=== PATIENT | female | born 2000 | race Caucasian/White ===

== ENCOUNTER 2022-07-31 15:11 | Emergency (ER) | payer MEDICAID, SELFPAY ==
[2022-07-31 16:16] VITALS: BP 113/68; PULSE 94; RESP 18; TEMP 36.8; O2SAT 98; BMI 32.1
--- NOTE | 2022-07-31 16:16 | ED.SKABFB ---
HPI - Skin/Abscess/Foreign Bdy General Chief complaint: Skin/Abscess/Foreign Body <Katrin Flores CNP - Last Filed: 07/31/22 16:20> Stated complaint: abcess? <Katrin Flores CNP - Last Filed: 07/31/22 16:20> Time Seen by Provider: 07/31/22 16:33 <Katrin Flores CNP - Last Filed: 07/31/22 16:20> History of Present Illness HPI narrative: patient complains of painful lump in the gluteal area that is developed over the past 2 weeks denies any fever denies any other rash or painful areas <PANDA Romero - Last Filed: 07/31/22 17:40> Related Data Home medications: Previous Rx's Medication Instructions Recorded doxycycline hyclate 100 mg capsule 100 mg PO BID 7 days #14 caps 07/31/22 ibuprofen 600 mg tablet 600 mg PO Q6H PRN pain #20 tabs 07/31/22 <Katrin Flores CNP - Last Filed: 07/31/22 16:20> Allergies/Adverse reactions: Allergies Allergy/AdvReac Type Severity Reaction Status Date / Time No Known Allergies Allergy Verified 07/31/22 16:20 <Katrin Flores CNP - Last Filed: 07/31/22 16:20> [facility] Past Medical History Source: nursing notes reviewed <PANDA Romero - Last Filed: 07/31/22 17:40> Social History Social History: Social History Advance Directives: No Advance Directives Information Provided: Yes <Katrin Flores CNP - Last Filed: 07/31/22 16:20> Physical Exam Vital Signs: Vital Signs: Last Vital Signs Temp 98.2 F 07/31/22 16:16 Pulse 94 07/31/22 16:16 Resp 18 07/31/22 16:16 BP 113/68 07/31/22 16:16 Pulse Ox 98 07/31/22 16:16 O2 Del Method 07/31/22 16:16 BMI result Body Mass Index 32.1 <Katrin Flores CNP - Last Filed: 07/31/22 16:20> Vital Signs: Last Vital Signs Temp 98.2 F 07/31/22 16:16 Pulse 94 01/06/23 16:16 Resp 18 07/31/22 16:16 BP 113/68 07/31/22 16:16 Pulse Ox 98 07/31/22 16:16 O2 Del Method 07/31/22 16:16 BMI result Body Mass Index 32.1 <PANDA Romero - Last Filed: 07/31/22 17:40> general appearance is no distress Head is normocephalic atraumatic Neck is supple Respiratory no distress Skin exam in the pilonidal area there is an obvious abscess with redness swelling and fluctuance but no fluid discharge in no surrounding erythema, no other rashes noted Extremities full range of motion x4 <PANDA Romero - Last Filed: 07/31/22 17:40> Course Course Course Narrative: This is an RME: Additional HPI, ROS, PE not included below will be deferred to primary provider. Patient is a 22 year old female presents to the emergency department for evaluation of a cyst to the left buttock. Complaining severe pain unrelieved by Aleve, also complaining redness surrounding the area. Denies fevers or chills. Denies any history of MRSA, or prior abscesses. Plan: Patient will need to be brought back to room for further evaluation, may require incision and drainage. <Katrin Flores CNP - Last Filed: 07/31/22 16:20> This is an RME: Additional HPI, ROS, PE not included below will be deferred to primary provider. Patient is a 22 year old female presents to the emergency department for evaluation of a cyst to the left buttock. Complaining severe pain unrelieved by Aleve, also complaining redness surrounding the area. Denies fevers or chills. Denies any history of MRSA, or prior abscesses. Plan: Patient will need to be brought back to room for further evaluation, may require incision and drainage. procedure note Pilonidal abscess is cleansed with Betadine Anesthesia is 8 cc of 1% lidocaine A small vertical incision was made, it was probed with forceps loculations broken up and copious pus was discharge Packing was placed Bandage applied Patient was discharged home with antibiotic <PANDA Romero - Last Filed: 07/31/22 17:40> Medications Administered Discontinued Medications Generic Name Dose Route Start Last Admin Trade Name Freq PRN Reason Stop Dose Admin Lidocaine HCl 2 ml 07/31/22 16:44 07/31/22 16:51 Lidocaine Hcl 1 % Mpf 2 Ml Vial INFILTRATI 07/31/22 16:45 2 ml ONCE ONE Administration Lidocaine HCl 2 ml 07/31/22 16:44 07/31/22 16:51 Lidocaine Hcl 1 % Mpf 2 Ml Vial INFILTRATI 07/31/22 16:45 2 ml ONCE ONE Administration Lidocaine HCl 2 ml 07/31/22 16:44 07/31/22 16:51 Lidocaine Hcl 1 % Mpf 2 Ml Vial INFILTRATI 07/31/22 16:45 2 ml ONCE ONE Administration Lidocaine HCl 2 ml 07/31/22 16:44 07/31/22 16:51 Lidocaine Hcl 1 % Mpf 2 Ml Vial INFILTRATI 07/31/22 16:45 2 ml ONCE ONE Administration Lidocaine HCl 2 ml 07/31/22 16:44 07/31/22 16:51 Lidocaine Hcl 1 % Mpf 2 Ml Vial INFILTRATI 07/31/22 16:45 2 ml ONCE ONE Administration <Katrin Flores CNP - Last Filed: 07/31/22 16:20> Medications Administered Discontinued Medications Generic Name Dose Route Start Last Admin Trade Name Yaw PRN Reason Stop Dose Admin Lidocaine HCl 2 ml 07/31/22 16:44 07/31/22 16:51 Lidocaine Hcl 1 % Mpf 2 Ml Vial INFILTRATI 07/31/22 16:45 2 ml ONCE ONE Administration Lidocaine HCl 2 ml 07/31/22 16:44 07/31/22 16:51 Lidocaine Hcl 1 % Mpf 2 Ml Vial INFILTRATI 07/31/22 16:45 2 ml ONCE ONE Administration Lidocaine HCl 2 ml 07/31/22 16:44 07/31/22 16:51 Lidocaine Hcl 1 % Mpf 2 Ml Vial INFILTRATI 07/31/22 16:45 2 ml ONCE ONE Administration Lidocaine HCl 2 ml 07/31/22 16:44 07/31/22 16:51 Lidocaine Hcl 1 % Mpf 2 Ml Vial INFILTRATI 07/31/22 16:45 2 ml ONCE ONE Administration Lidocaine HCl 2 ml 07/31/22 16:44 07/31/22 16:51 Lidocaine Hcl 1 % Mpf 2 Ml Vial INFILTRATI 07/31/22 16:45 2 ml ONCE ONE Administration <PANDA Romero - Last Filed: 07/31/22 17:40> Discharge Plan Discharge Clinical Impression: Pilonidal abscess <Katrin Flores CNP - Last Filed: 07/31/22 16:20> Patient Disposition: Home, Self-Care <Katrin Flores CNP - Last Filed: 07/31/22 16:20> Additional Instructions: return to ER in 2 days for packing removal/wound check Return any time for spreading redness, worse pain and swelling fever any sign of worsening infection any worse condition or any concerns <Katrin Flores CNP - Last Filed: 07/31/22 16:20> Prescriptions: New doxycycline hyclate 100 mg capsule 100 mg PO BID 7 Days Qty: 14 0RF ibuprofen 600 mg tablet 600 mg PO Q6H PRN (Reason: pain) Qty: 20 0RF <Katrin Flores CNP - Last Filed: 07/31/22 16:20> Stand Alone Forms: Work/School Release <Katrin Flores CNP - Last Filed: 07/31/22 16:20>
[2022-07-31] MEDS: Lidocaine HCl 1 % MPF 2 ML VIAL INFILTRATI ×5 (16:51)
--- NOTE | 2022-07-31 17:24 | PC.NURSE ---
PANDA Wing & this RN to bedside to drain pilonidal abscess. Packing placed by PANDA Wing. Family member (sister) at bedside during procedure for support. Patient tolerated procedure well. Dressing applied using abdominal dressing pad & tegaderm adhesive to secure.
--- NOTE | 2022-07-31 17:57 | PC.NURSE ---
I entered the room to medicate the patient and review discharge paperwork. Upon entry, patient found to be nauseous & pale. Provider (PANDA Wing) aware. Staff biomedical engineering professor was also present during this interaction. Instructed to lie down, take deep breaths. Sister remains present for support.
--- NOTE | 2022-07-31 18:10 | PC.NURSE ---
Sitting upright at this time, states I feel a little better
[2022-07-31] MEDS: Doxycycline Monohydrate 100 MG CAPSULE PO (18:30)
== END 2022-07-31 18:41 | disposition home or self-care (01) ==
PROVIDERS: Emergency Provider Emergency Medicine
DX: L05.01 Pilonidal cyst with abscess (principal); Z79.899 Other long term (current) drug therapy
CPT/HCPCS: 10080; 99282; 99284

== ENCOUNTER 2022-08-02 14:54 | Emergency (ER) | payer MEDICAID, SELFPAY ==
[2022-08-02 15:00] VITALS: BP 109/61; PULSE 85; RESP 14; TEMP 36.1; O2SAT 99
--- NOTE | 2022-08-02 15:00 | ED_ITS ---
HPI - Recheck/Abnormal Lab/Rx General Chief Complaint: Skin/Abscess/Foreign Body <PANDA Mathis - Last Filed: 08/02/22 15:02> Stated Complaint: ?cyst <PANDA Mathis Last Filed: 08/02/22 15:02> Time Seen by Provider: 08/02/22 17:50 <PANDA Mathis Last Filed: 08/02/22 15:02> Source: patient <PANDA Diallo Last Filed: 08/02/22 18:06> Mode of arrival: ambulatory <PADNA Diallo Last Filed: 08/02/22 18:06> History of Present Illness HPI narrative: 22-year-old female with a past medical history of pilonidal cyst s/p I&D in the ED on 07/31 presenting to the ED for packing removal. Admits has not yet picked up antibiotic from pharmacy, will get today. Reports mild stinging, otherwise overall improvement. Denies worsening size, redness, fever, drainage, difficulty having BM <PANDA Diallo - Last Filed: 08/02/22 18:06> MD complaint: wound re-check <PANDA Diallo Last Filed: 08/02/22 18:06> Initial visit (ago): day(s) <PANDA Diallo Last Filed: 08/02/22 18:06> Related Data Home Medications: Previous Rx's Medication Instructions Recorded doxycycline hyclate 100 mg capsule 100 mg PO BID 7 days #14 caps 07/31/22 ibuprofen 600 mg tablet 600 mg PO Q6H PRN pain #20 tabs 07/31/22 <PANDA Mathis Last Filed: 08/02/22 15:02> Allergies/Adverse Reactions: Allergies Allergy/AdvReac Type Severity Reaction Status Date / Time No Known Allergies Allergy Verified 07/31/22 16:20 <PANDA Mathis Last Filed: 08/02/22 15:02> Review of Systems Review of Systems: Constitutional: No Fever, No Chills ENT/Mouth: No Ear Pain, No Nasal Congestion, No sore throat, No Swallowing Difficulty Cardiovascular: No Chest Pain, No SOB Respiratory: No Cough, No Sputum Gastrointestinal: No Nausea, No Vomiting, No Diarrhea, No Constipation, No Abdominal pain Genitourinary: No Dysuria, No Urinary Frequency, No Hematuria, No Flank Pain Musculoskeletal: No joint pain, No Myalgias, No Joint Swelling Skin: + Skin Lesions, No rash Neuro: No Weakness, No Numbness, No Paresthesias <PANDA Diallo - Last Filed: 08/02/22 18:06> Yes all other systems are reviewed and are negative <PANDA Diallo - Last Filed: 08/02/22 18:06> Constitutional: Constitutional: Reports as per HPI <PANDA Diallo - Last Filed: 08/02/22 18:06> [facility] Past Medical History Attestation statement: The following information was validated with the patient. <PANDA Diallo - Last Filed: 08/02/22 18:06> Social History Social History: Social History Advance Directives: No Advance Directives Information Provided: No <PANDA Mathis - Last Filed: 08/02/22 15:02> Physical Exam Vital Signs: Vital Signs: Last Vital Signs Temp 98 F 08/02/22 17:55 Pulse 89 08/02/22 17:55 Resp 16 08/02/22 17:55 BP 114/68 08/02/22 17:55 Pulse Ox 100 08/02/22 17:55 O2 Del Method 08/02/22 17:55 BMI result Body Mass Index 30.0 <PANDA Mathis Last Filed: 08/02/22 15:02> Vital Signs: Last Vital Signs Temp 98 F 08/02/22 17:55 Pulse 89 08/02/22 17:55 Resp 16 08/02/22 17:55 BP 114/68 08/02/22 17:55 Pulse Ox 100 08/02/22 17:55 O2 Del Method 08/02/22 17:55 BMI result Body Mass Index 30.0 <PANDA Diallo Last Filed: 08/02/22 18:06> Const: General: cooperative, healthy appearing and no acute distress <PANDA Diallo Last Filed: 08/02/22 18:06> Orientation/consciousness: patient oriented x3 <PANDA Diallo - Last Filed: 08/02/22 18:06> Limitations: no limitations <PANDA Diallo - Last Filed: 08/02/22 18:06> HEENT: Head: Yes normal to inspection and Yes atraumatic <Shaina Avendaño PA - Last Filed: 08/02/22 18:06> Ears: hearing grossly normal bilaterally <Shaina Avenadño PA - Last Filed: 08/02/22 18:06> General nose exam: Normal external nose present <Shaina Avendaño PA - Last Filed: 08/02/22 18:06> Face and sinus: Yes normal facial exam <Shaina Avendaño PA - Last Filed: 08/02/22 18:06> Eyes: General: appearance normal, both eyes and all related structures <Shaina Avendaño PA - Last Filed: 08/02/22 18:06> EOM: EOMs intact bilaterally <PANDA Diallo - Last Filed: 08/02/22 18:06> Neck: Neck: Yes normal visual inspection and Yes no meningeal signs <Shaina Avendaño PA - Last Filed: 08/02/22 18:06> Resp: Effort & Inspection: normal respiratory effort and no respiratory distress <Shaina Avendaño PA - Last Filed: 08/02/22 18:06> Cardio: Rate: regular rate <Shaina Avendaño PA - Last Filed: 08/02/22 18:06> : Other: pilonidal abscess with packing in place. Packing removed. Scant amount of discharge expressed. No surrounding erythema, no fluctuance/induration <Shaina Avendaño PA - Last Filed: 08/02/22 18:06> Skin: Rashes: no rashes <PANDA Diallo - Last Filed: 08/02/22 18:06> Wounds: no wounds <Shaina Avendaño PA - Last Filed: 08/02/22 18:06> Neuro: General: patient oriented x3, tone normal and no meningeal signs <Shaina Avendaño PA - Last Filed: 08/02/22 18:06> Gait exam (Neuro): Normal gait present <PANDA Diallo - Last Filed: 08/02/22 18:06> Extrem: General: Yes normal to inspection <PANDA Diallo Last Filed: 08/02/22 18:06> Course Course Course Narrative: [id number] - 22yoF presenting to the ER for packing removal after she had an I&D of an abscess on 07/31/2022. Reports only mild pain no other symptoms. Reports she has not started her antibiotics that she was prescribed. Denies any other symptoms complaints or concerns at this time. Plan: Exam deferred due to in triage and patient had a pilonidal abscess I&D therefore patient will be evaluated [facility] for packing removal. <PANDA Mathis Last Filed: 08/02/22 15:02> Medical Decision Making Medical Decision Making MDM Narrative: 22-year-old female with a past medical history of pilonidal cyst s/p I&D in the ED on 07/31 presenting to the ED for packing removal. on exam vital signs stable, NAD, nontoxic appearing my physical exam as above. Packing removed from pilonidal abscess. Appears appropriately healing, no evidence of overlying cellulitis. No evidence of Sky gangrene. No perianal involvement. Results discussed with patient including worrisome signs and symptoms and strict return precautions, and when to return to the emergency department. They verbalized understanding and feel safe for discharge at this time. <PANDA Diallo - Last Filed: 08/02/22 18:06> Differential Diagnosis Differential Diagnoses: The differential diagnosis associated with the presentation includes <PANDA Diallo Last Filed: 08/02/22 18:06> as above <PANDA Diallo - Last Filed: 08/02/22 18:06> Procedures Procedure Narrative Procedure Narrative: Packing removal location: Pilonidal cyst no complications <PANDA Diallo Last Filed: 08/02/22 18:06> Discharge Plan Discharge Clinical Impression: Abscess packing removal <PANDA Mathis Last Filed: 08/02/22 15:02> Patient Disposition: Home, Self-Care <PANDA Mathis Last Filed: 08/02/22 15:02> Instructions: Abscess (ED), Abscess Follow-up (ED) <PANDA Mathis - Last Filed: 08/02/22 15:02> Additional Instructions: the packing was removed today. Please practice warm water Sitz at home. 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 Take Tylenol and Motrin at If area begins to worsen, grow, have drainage of fever increasing pain return to the emergency department el embalaje fue retirado hoy. Practique Sitz con agua tibia en casa. Recoger el antibi?andres prescrito previamente. [place] Tylenol y Motrin en Si el ?rajesh comienza a empeorar, crece, tiene drenaje de fiebre, aumenta el dol or, regrese al departamento de emergencias. <PANDA Mathis - Last Filed: 08/02/22 15:02> Prescriptions: No Action doxycycline hyclate 100 mg capsule 100 mg PO BID 7 Days Qty: 14 0RF ibuprofen 600 mg tablet 600 mg PO Q6H PRN (Reason: pain) Qty: 20 0RF <PANDA Mathis - Last Filed: 08/02/22 15:02> [place] [facility] [facility] [place]] Julius Ahn MD [Primary Care Provider] - 3 days <PANDA Mathis - Last Filed: 08/02/22 15:02> Print Language: Azerbaijani <PANDA Mathis - Last Filed: 08/02/22 15:02>
[2022-08-02 17:55] VITALS: BP 114/68; PULSE 89; RESP 16; TEMP 36.6; O2SAT 100
== END 2022-08-02 18:11 | disposition home or self-care (01) ==
PROVIDERS: Emergency Provider Internal Medicine; PCP Internal Medicine
DX: Z48.01 Encounter for change or removal of surgical wound dressing (principal)
CPT/HCPCS: 99282

== ENCOUNTER 2023-04-17 10:01 | Emergency (ER) | payer MEDICAID, SELFPAY ==
[2023-04-17 10:05] VITALS: BP 122/69; PULSE 91; RESP 18; TEMP 36.7; O2SAT 98; BMI 30.7
--- NOTE | 2023-04-17 10:19 | ED.SKABFB ---
HPI - Skin/Abscess/Foreign Bdy General Chief complaint: Skin/Abscess/Foreign Body Stated complaint: abcess Time Seen by Provider: 04/17/23 10:18 Source: patient, RN notes reviewed and old records reviewed Mode of arrival: ambulatory History of Present Illness HPI narrative: 23-year-old female with a past medical history of pilonidal cyst presenting to the ED complaining a Related Data Previous Rx's Medication Instructions Recorded doxycycline hyclate 100 mg capsule 100 mg PO BID 7 days #14 caps 07/31/22 ibuprofen 600 mg tablet 600 mg PO Q6H PRN pain #20 tabs 07/31/22 cephalexin 500 mg capsule 500 mg PO QID 7 days #28 caps 04/17/23 doxycycline hyclate 100 mg tablet 100 mg PO BID 7 days #14 tabs 04/17/23 Allergies Allergy/AdvReac Type Severity Reaction Status Date / Time No Known Allergies Allergy Verified 07/31/22 16:20 Review of Systems Review of Systems: Yes all other systems are reviewed and are negative Constitutional: Constitutional: Reports as per [facility] Past Medical History Attestation statement: The following information was validated with the patient. Source: old records reviewed Social History Social History Smoked in Last 30 Days: No Use of substances other than those prescribed or required for medical reasons: No Advance Directives: No Advance Directives Information Provided: No Physical Exam Vital Signs: Vital Signs: Last Vital Signs Temp 98.1 F 04/17/23 10:05 Pulse 91 04/17/23 10:05 Resp 18 04/17/23 10:05 BP 122/69 04/17/23 10:05 Pulse Ox 98 04/17/23 10:05 O2 Del Method Room Air 04/17/23 10:05 BMI result Body Mass Index 30.7 Const: General: cooperative, healthy appearing and no acute distress Orientation/consciousness: patient oriented x3 Limitations: no limitations HEENT: Head: Yes normal to inspection and Yes atraumatic Ears: hearing grossly normal bilaterally General nose exam: Normal external nose present Face and sinus: Yes normal facial exam Eyes: General: appearance normal, both eyes and all related structures EOM: EOMs intact bilaterally Neck: Neck: Yes normal visual inspection and Yes no meningeal signs Resp: Effort & Inspection: normal respiratory effort and no respiratory distress Auscultation: clear to auscultation bilaterally Cardio: Rate: regular rate Heart sounds: S1 normal heart sound present and S2 normal heart sound present GI: Inspection: Yes normal to inspection Palpation (GI): Soft to palpation, nontender, no guarding and not rigid Skin: Rashes: no rashes Wounds: no wounds Neuro: General: patient oriented x3, tone normal and no meningeal signs Cranial nerves: Yes CN's II-XII intact bilaterally Gait exam (Neuro): Normal gait present Extrem: General: Yes normal to inspection Medical Decision Making Medical Decision Making MDM Narrative: Please refer to course for remaining clinical decision making, interpretation of labs/imaging results, and discussions with consultants and/or family members. Differential Diagnosis Differential Diagnoses: The differential diagnosis associated with the presentation includes As above External Record Review External record reviewed: Inpatient record, Office record, Outpatient record, Prior outpatient labs, Prior outpatient radiology, Primary care record and Outside ED record Tests considered The following testing was considered but not selected: As above Discharge Plan Discharge Clinical Impression: Pilonidal cyst Patient Disposition: Home, Self-Care Instructions: Pilonidal Cyst (ED) Additional Instructions: Doxy and Keflex are antibiotics please take as prescribed Apply warm compresses Follow-up with general surgery If area begins to grow, turns red, has drainage or for you have fever return to the ED Doxy y Keflex son antibi?ticos, t?melos seg?n lo recetado. Aplicar compresas tibias Seguimiento con cirug?a general. Si el ?rajesh comienza a crecer, se enrojece, tiene secreci?n o tiene fiebre, regrese al servicio de urgencias. Prescriptions: New cephalexin 500 mg capsule 500 mg PO QID 7 Days Qty: 28 0RF doxycycline hyclate 100 mg tablet 100 mg PO BID 7 Days Qty: 14 0RF No Action doxycycline hyclate 100 mg capsule 100 mg PO BID 7 Days Qty: 14 0RF ibuprofen 600 mg tablet 600 mg PO Q6H PRN (Reason: pain) Qty: 20 0RF Referrals: [facility] – [place] [facility] Sur[facility] [Provider Group] Julius Ahn MD [Primary Care Provider] - 5 days Interventions: ED Discharge Assessment Last Done: 04/17/23 11:16 Discharge Date/Time: 04/17/23 11:15 Print Language: Amharic
== END 2023-04-17 11:15 | disposition home or self-care (01) ==
PROVIDERS: Emergency Provider Emergency Medicine Emergency Medical Services; PCP Internal Medicine
DX: L05.91 Pilonidal cyst without abscess (principal)
CPT/HCPCS: 99283; 99284

== ENCOUNTER 2023-04-21 09:12 | Outpatient (AMB) | payer MEDICAID, SELFPAY ==
[2023-04-21 09:19] VITALS: BP 113/59; PULSE 67; BMI 30.5
--- NOTE | 2023-04-21 09:19 | A.OFFVIS_ITS ---
Intake Vital Signs 04/21/23 09:19 Height 5 ft 3 in Weight 172 lb BMI 30.5 BP 113/59 L Blood Pressure Location Rt brachial Position Sitting Pulse 67 Intake Visit Reasons: pilondial cyst Intake Note: Patient here for pilonidal cyst on buttock. Has been present for 4m. Was seen at the ER on 04-17-23. I&Ded at placed on Doxy and Cephalexin course. Still taking abx's. Reports redness has subsided. C/o tender to touch but pain has improved. 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 Patient was recently seen in the ER for a flare-up and was given antibiotics and now presents for follow-up. One of her prior episodes also required incision and drainage. She wishes to have this process excised. Chart was reviewed patient evaluated Physical Exam Vital Signs: Last Vital Signs Pulse 67 04/21/23 09:19 BP 113/59 L 04/21/23 09:19 BMI result Body Mass Index 30.5 Chest Other: Chest breath sounds bilaterally, HS 1 in 2 GI Other: Abdomen soft, benign Back/Spine/Pelvis Other: Moderate chronic pilonidal cyst changes of the juni cleft area. Mildly tender. No evidence of any fluctuance or abscess. Assessment & Plan Assessment & Plan (1) Pilonidal cyst of juni cleft: Code(s): L05.91 - Pilonidal cyst without abscess Plan Current plan is for the patient complete her antibiotic course. She wishes to undergo formal excision. Risks, benefits, alternatives of excision of pilonidal cyst of juni cleft area were reviewed with the patient and included but not limited to bleeding, infection, recurrence, numbness, pain, scarring, seroma formation, and wound dehiscence. Also very specifically reviewed with the patient is the need to be sedentary for the 4-6 weeks postprocedure to avoid any of these complications. Patient wishes to proceed. All questions were answered. Arrangements were made for this.. Coding Level of Care Code New Pt Level 5 (99110) Diagnoses Pilonidal cyst of cleft L05.91
== END 2023-04-21 09:34 | disposition home or self-care (01) ==
PROVIDERS: PCP Internal Medicine; Visit Provider Surgery
DX: L05.91 Pilonidal cyst without abscess (principal)
CPT/HCPCS: 99204

== ENCOUNTER → 2023-04-21 09:12 | Outpatient (BNVA) | payer MEDICAID, SELFPAY | PROVIDERS: PCP Internal Medicine; Visit Provider Surgery ==

== ENCOUNTER 2023-10-21 09:19 | Emergency (ER) | payer MEDICAID, SELFPAY ==
[2023-10-21 09:29] VITALS: BP 109/72; PULSE 85; RESP 16; TEMP 37.2; O2SAT 98; BMI 31.9
--- NOTE | 2023-10-21 09:50 | ED.URI ---
HPI - URI/Sore Throat General Chief Complaint: Upper Respiratory Symptoms Stated Complaint: Sore throat, cough Time Seen by Provider: 10/21/23 09:50 Source: patient Mode of arrival: ambulatory Limitations: no limitations History of Present Illness HPI Narrative: 23-year-old female with no significant past medical history presents to the emergency department with complaints of sore throat, nasal congestion, and cough for the last 3 days. She denies any fevers, chills, dyspnea, difficulty tolerating secretions, or change in phonation. Pertinent positives and negatives discussed in HPI Related Data Previous Rx's Medication Instructions Recorded doxycycline hyclate 100 mg capsule 100 mg PO BID 7 days #14 caps 07/31/22 ibuprofen 600 mg tablet 600 mg PO Q6H PRN pain #20 tabs 07/31/22 cephalexin 500 mg capsule 500 mg PO QID 7 days #28 caps 04/17/23 doxycycline hyclate 100 mg tablet 100 mg PO BID 7 days #14 tabs 04/17/23 Allergies Allergy/AdvReac Type Severity Reaction Status Date / Time No Known Allergies Allergy Verified 04/21/23 09:22 Review of Systems Review of Systems: Yes all other systems are reviewed and are negative [facility] Social History Social History Advance Directives: No Physical Exam Vital Signs: Vital Signs: Last Vital Signs Temp 99.0 F 10/21/23 09:29 Pulse 85 10/21/23 09:29 Resp 16 10/21/23 09:29 BP 109/72 10/21/23 09:29 Pulse Ox 98 10/21/23 09:29 O2 Del Method Room Air 10/21/23 09:29 BMI result Body Mass Index 31.9 Nursing notes and vital signs reviewed. GENERAL APPEARANCE: A&0 x 4, generally well appearing, no acute distress HENMT: Normal to inspection, atraumatic, face symmetrical. Normal external ears, nose, and oropharynx clear with 2+ tonsils bilat EYE: PERRLA, EOM intact, structures appear normal NECK: Supple without stiffness or restricted ROM. HEART: Normal rate and regular rhythm, normal S1/S2, no M/R/G LUNGS: LS CTA, moving air well. Able to speak in complete sentences. No crackles, wheezes, or rhonchi auscultated BACK: No CVAT, no obvious deformity EXTREMITIES: Moving all extremities without difficulty. Normal capillary refill. NEUROLOGICAL: Alert and oriented, moving all 4 extremities with equal strength. CN not formally tested but appearing grossly intact. Observed to ambulate with normal gait. Cognition normal SKIN: Warm and dry without any lesions, rash, or visible sores Medical Decision Making Medical Decision Making MDM Narrative: Old records reviewed for previous imaging, lab studies, ECGs, and notes. Patient was assessed the emergency department with no acute distress or toxicity noted. Serology negative for COVID, flu, RSV, and strep. Patient's symptoms appear consistent with a viral upper respiratory infection with low suspicion at this time for peritonsillar abscess or pneumonia. Patient is safe for discharge at this time with plan for [id number] Tylenol and/or NSAID such as ibuprofen or naproxen for fever/discomfort with dosing as per packaging. HPI, PE, diagnostics, and plan discussed with patient and family with no unanswered questions at this time. Strict return precautions given to return to the emergency department with new, worsening, or concerning emergent symptoms. Recommended to follow-up with there primary care provider in 24-48 hours for further treatment and management. 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 pyogenes GrpA SERA Negative (Negative) Discharge Plan Discharge Clinical Impression: Upper respiratory infection Patient Disposition: Home, Self-Care Instructions: Pharyngitis (ED), Upper Respiratory Infection (ED) Additional Instructions: Your seen in the emergency department for concerns for sore throat. Your swabs were negative for flu, COVID, RSV, and strep throat. Your symptoms are consistent with a viral upper respiratory infection. Viruses have to run their course and you should begin to feel better in the next several days. You are safe for discharge at this time with plan for management of fever or discomfort with [id number] Tylenol and/or NSAID such as ibuprofen or naproxen with dosing as per packaging. Please return to the emergency department with new, worsening, or concerning emergent symptoms. Recommended to follow-up with your primary care provider in 24-48 hours for further treatment and management. Thank you for choosing [facility]. Prescriptions: No Action doxycycline hyclate 100 mg capsule 100 mg PO BID 7 Days Qty: 14 0RF ibuprofen 600 mg tablet 600 mg PO Q6H PRN (Reason: pain) Qty: 20 0RF cephalexin 500 mg capsule 500 mg PO QID 7 Days Qty: 28 0RF doxycycline hyclate 100 mg tablet 100 mg PO BID 7 Days Qty: 14 0RF Referrals: [facility] [place] Family Medicine [Provider Group] [facility] [Provider Group] [facility] [Provider Group] Stand Alone Forms: Work/School Release Print Language: Cambodian
[2023-10-21 10:05] LABS: IDNOW Serial# 08D9AD1C; Strep A Nucleic Acid Negative (Negative)
[2023-10-21 10:31] LABS: Influenza A PCR NEGATIVE (Negative); Influenza B PCR NEGATIVE (Negative); Resp Syncy Virus RNA Qual PCR NEGATIVE (Negative); SARS COV2 PCR INHOUSE NEGATIVE (Negative)
[2023-10-21 11:08] VITALS: BP 108/88; PULSE 88; RESP 16; TEMP 36.9; O2SAT 98
== END 2023-10-21 11:08 | disposition home or self-care (01) ==
PROVIDERS: Emergency Provider Emergency Medicine
DX: J06.9 Acute upper respiratory infection, unspecified (principal); Z11.52 Encounter for screening for COVID-19; Z20.828 Contact with and (suspected) exposure to other viral communicable diseases
CPT/HCPCS: 0241U; 87651; 99282; 99283

== ENCOUNTER 2025-02-07 07:48 | Emergency (ER) | payer MEDICAID, SELFPAY ==
[2025-02-07 07:53] VITALS: BP 104/75; PULSE 80; RESP 16; TEMP 36.9; O2SAT 98; BMI 32.9
[2025-02-07 08:17] LABS: IDNOW Serial# 55D5AD1C
[2025-02-07 08:18] LABS: Strep A Nucleic Acid Positive (Negative)
[2025-02-07 08:51] LABS: Resp Syncy Virus RNA Qual PCR NEGATIVE (Negative); SARS COV2 PCR INHOUSE NEGATIVE (Negative)
--- NOTE | 2025-02-07 09:06 | ED_ITS ---
HPI - General Adult General Chief complaint: Upper Respiratory Symptoms Stated complaint: throat pain Time Seen by Provider: 02/07/25 08:35 Source: patient and RN notes reviewed Mode of arrival: ambulatory Limitations: no limitations History of Present Illness ED Provider: Rocio Nobles PA-C HPI narrative: This is a 24-year-old female, with no known medical problems, who presents emergency department with concerns of sore throat x3 days. Patient reports that she also has had subjective fevers. She has been able to eat and drink without difficulty. No congestion, cough, abdominal pain, nausea, vomiting or diarrhea. She has been taking Tylenol for her symptoms which has provided her with some relief. No other complaints or concerns at this time. MD complaint: Sore throat Onset (ago): day(s) Radiation: non-radiation Severity: moderate Quality: aching Pain Consistency: constant Relieving factors: none Exacerbating factors: none Associated symptoms: denies other symptoms Treatments prior to arrival: none Related Data Previous Rx's ?Medication ?Instructions ?Recorded doxycycline hyclate 100 mg capsule 100 mg PO BID 7 day s #14 caps 07/31/22 ibuprofen 600 mg tablet 600 mg PO Q6H PRN pain #20 t abs 07/31/22 cephalexin 500 mg capsule 500 mg PO QID 7 days #28 cap s 04/17/23 doxycycline hyclate 100 mg tablet 100 mg PO BID 7 days #14 tabs 04/17/23 acetaminophen 500 mg tablet 500 - 1,000 mg (1 - 2 x 50 0 mg) PO 02/07/25 (Tylenol Extra Strength) Q6H PRN fever or pain #30 ta bs amoxicillin 500 mg tablet 500 mg PO BID 10 days #20 ta bs 02/07/25 ibuprofen 600 mg tablet 600 mg PO Q6H PRN pain #30 t abs 02/07/25 Allergies Allergy/AdvReac Type Severity Reaction Status Date / Time No Known Allergies Allergy Verified 02/07/25 07:56 Review of Systems Review of Systems: Yes all other systems are reviewed and are negative Constitutional: Constitutional: Reports as per [facility] Past Medical History Attestation statement: The following information was validated with the patient. Physical Exam ED Vital Signs: Vital Signs - 24 hr 02/07/25 07:53 Temperature 98.5 F Pulse Rate 80 Respiratory Rate 16 Blood Pressure 104/75 Pulse Oximetry 98 Oxygen Delivery Method Room Air BMI result Body Mass Index 32.9 Const General: cooperative, comfortable and no acute distress Orientation/consciousness: patient oriented x3 Limitations: no limitations HENMT Other: Posterior oropharynx is erythematous, bilateral tonsils are edematous with exudates noted, uvula is midline. No trismus, drooling, or dysphonia. Speaking in full sentences under no acute distress. Head: Yes normal to inspection, Yes normocephalic and Yes atraumatic Ears: hearing grossly normal bilaterally and TM's normal bilaterally General nose exam: Normal external nose present Face and sinus: Yes normal facial exam Mouth: Normal oral and palatal mucosa present, oropharynx normal and moist mucous membranes Throat: Yes posterior oropharynx normal Eyes General: appearance normal, both eyes and all related structures Eyelids: Yes eyelids normal Conjunctivae: conjunctivae normal Sclerae: sclerae normal Pupils: Equal, round and reactive pupils present EOM: EOMs intact bilaterally Neck Neck: Yes normal visual inspection, Yes full ROM and Yes no lymphadenopathy Lymphatic: no lymphadenopathy noted Chest Chest palpation & inspection: normal inspection of the chest Resp Effort & Inspection: normal respiratory effort and able to speak in complete sentences Auscultation: clear to auscultation bilaterally, no crackles, no rales, no rhonchi and no wheezes Cardio Rate: regular rate Rhythm: regular rhythm Heart sounds: S1 normal heart sound present and S2 normal heart sound present GI Inspection: Yes normal to inspection Skin General skin exam: no rashes or lesions noted Trauma: no lacerations or abrasions Wounds: no wounds Neuro General: patient oriented x3 and moves all extremities Cranial nerves: Yes Equal, round and reactive pupils present Extrem General: Yes normal to inspection Right upper extremity: normal to inspection Left upper extremity: normal to inspection Right lower extremity: normal to inspection Left lower extremity: normal to inspection Medical Decision Making Medical Decision Making MDM Narrative: This is a 24-year-old female who presents emergency department with concerns of sore throat x3 days. On arrival, vital signs within normal limits. She is speaking full sentences under no acute distress. Oropharynx is erythematous, with bilateral tonsillar edema and exudates. 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 Strep test was performed and was positive, all other viral swabs were negative. Will treat with amoxicillin, ibuprofen and Tylenol. Also given dose of Decadron in the department due to tonsillar edema. Given strict return precautions. She understands and agrees with plan. Patient stable for discharge. Differential Diagnosis Differential Diagnoses: The differential diagnosis associated with the presentation includes See above Lab Data [facility] Lab Attestation statement: I reviewed the patient's lab results. See [facility] Labs: Lab Results 02/07/25 Range/Units 08:01 Influenza Type A (PCR) NEGATIVE (Negative) Influenza Type B (PCR) NEGATIVE (Negative) RSV RNA Qual (PCR) NEGATIVE (Negative) SARS-CoV-2 RNA (RT-PCR) NEGATIVE (Negative) S. pyogenes GrpA SERA Positive A (Negative) Discharge Plan Discharge Clinical Impression: Acute streptococcal pharyngitis Patient Disposition: Home, Self-Care Instructions: Strep Throat (ED) Additional Instructions: You were seen in the emergency department due to a sore throat. You tested positive for strep throat. This is a bacterial infection that requires antibiotic treatment for. Throw away your toothbrush after being on the antibiotics for 48 hours. Please complete full course of antibiotics even if your symptoms improve. Alternate between Tylenol and ibuprofen as needed for pain and symptoms. Saltwater gargles, tea with honey, soups, can help with your symptoms. If any new or worsening symptoms occur including but not limited to inability to swallow, severe shortness of breath, chest pain, please seek emergent care. Prescriptions: New ibuprofen 600 mg tablet 600 mg PO Q6H PRN (Reason: pain) Qty: 30 0RF acetaminophen [Tylenol Extra Strength] 500 mg tablet 500 - 1,000 mg PO Q6H PRN (Reason: fever or pain) Qty: 30 0RF amoxicillin 500 mg tablet 500 mg PO BID 10 Days Qty: 20 0RF No Action doxycycline hyclate 100 mg capsule 100 mg PO BID 7 Days Qty: 14 0RF ibuprofen 600 mg tablet 600 mg PO Q6H PRN (Reason: pain) Qty: 20 0RF cephalexin 500 mg capsule 500 mg PO QID 7 Days Qty: 28 0RF doxycycline hyclate 100 mg tablet 100 mg PO BID 7 Days Qty: 14 0RF Stand Alone Forms: Work/School Release Print Language: Japanese
--- OUTSIDE RECORDS SUMMARY | 2025-02-07 09:27 | XMS_ITS | Clinical Summary ---
Author Organization [employer] Address [address] [place] [address] Care Team Providers Care Motion Picture Narrator Name Role Phone Unavailable Primary Care Provider Unavailabl e Social History Tobacco Use Types Packs/Day Years Used Date Smoking Tobacco: Never Assessed Comments Unknown Sex and Gender Information Value Date Recorded Sex Assigned at Not on file Legal Sex Female 11:28 AM EDT Gender Identity Not on file Sexual Orientation Not on file Plan of Treatment Health Maintenance Due Date Last Done Comments Chlamydia and Gonorrhea Screening 2001 Depression Screening 2001 Disability Screening 2001 Alcohol/Substance Use Screening 2013 Tobacco Screening 2013 Family Planning (PISQ) 2016 HPV Vaccines (1 - 3-dose series) 2016 Meningococcal B Vaccine (1 o f 2 - Standard) 2017 DTaP/Tdap/Td Vaccines (1 - Tdap) 2020 Hepatitis B Vaccines (1 of 3 - 19+ 3-dose series) 2020 Pap Smear 2022 COVID-19 Vaccine (1 - 2023-2 5 season) 2024 Influenza Vaccine (#1) 2025 Zoster Vaccines (1 of 2) 2051 RSV Patients and Pa tients Aged 60 years or older (1 - 1-dose 75+ series) 2076 HIB Vaccines Aged Out No longer eligi ble based on patient's age to complete this topic Hepatitis A Vaccines Aged Out No long er eligible based on patient's age to complete this topic IPV Vaccines Aged Out No longer eligi ble based on patient's age to complete this topic Meningococcal Vaccine Aged Out No art petra eligible based on patient's age to complete this topic Pneumococcal Vaccine: Pediat rics (0 to 5 Years) and At-Risk Patients (6 to 49) Years Aged Out No longer eligible b ased on patient's age to complete this topic RSV under 20 months Aged Out No longe r eligible based on patient's age to complete this topic Rotavirus Vaccines Aged Out No longer eligible based on patient's age to complete this topic
[2025-02-07 09:34] VITALS: BP 104/75; PULSE 80; RESP 16; TEMP 36.9; O2SAT 98
== END 2025-02-07 09:34 | disposition home or self-care (01) ==
PROVIDERS: Emergency Provider Emergency Medicine
DX: J02.0 Streptococcal pharyngitis (principal); R50.9 Fever, unspecified; Z03.818 Encounter for observation for suspected exposure to other biological agents ruled out
CPT/HCPCS: 87637; 87651; 99283; J1100

== ENCOUNTER 2025-05-02 08:03 | Emergency (ER) | payer MEDICAID, SELFPAY ==
--- NOTE | ~2025-05-02 | XR_ITS ---
EXAMINATION: XR LUMBOSACRAL SPINE CLINICAL INFORMATION: back pain COMPARISON: None available. TECHNIQUE: Three views of the lumbosacral spine. FINDINGS: There is a very gentle levoconvex scoliosis, apex at L3. There is a normal lumbar lordosis. There is no subluxation or malalignment. There is no fracture, compression deformity, or suspicious bone lesion evident. Disc spaces are preserved at all levels. Facets are normally aligned and have a normal appearance. Normal-appearing sacrum and SI joints. No soft tissue abnormality. XR/XR lumbar spine 2-3V IMPRESSION: Essentially normal lumbar spine. Electronically signed by: Mariano Branch MD 05/02/2025 09:11 AM EDT
[2025-05-02 08:17] VITALS: BP 104/56; PULSE 95; RESP 16; TEMP 37; O2SAT 98; BMI 34.5
--- NOTE | 2025-05-02 08:58 | ED_ITS ---
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 She states this is very typical for her pain and she has been using anti-inflammatories and lidocaine patches without relief. Related Data Previous Rx's ?Medication ?Instructions ?Recorded doxycycline hyclate 100 mg capsule 100 mg PO BID 7 day s #14 caps 07/31/22 ibuprofen 600 mg tablet 600 mg PO Q6H PRN pain #20 t abs 07/31/22 cephalexin 500 mg capsule 500 mg PO QID 7 days #28 cap s 04/17/23 doxycycline hyclate 100 mg tablet 100 mg PO BID 7 days #14 tabs 04/17/23 acetaminophen 500 mg tablet 500 - 1,000 mg (1 - 2 x 50 0 mg) PO 02/07/25 (Tylenol Extra Strength) Q6H PRN fever or pain #30 ta bs amoxicillin 500 mg tablet 500 mg PO BID 10 days #20 ta bs 02/07/25 ibuprofen 600 mg tablet 600 mg PO Q6H PRN pain #30 t abs 02/07/25 diazepam 2 mg tablet (Valium) 2 mg PO TID PRN spasms 2 days #6 05/02/25 tabs methylprednisolone 4 mg tablets in 4 mg PO DAILY #21 e a 05/02/25 a dose pack (Medrol (Masoud)) Allergies Allergy/AdvReac Type Severity Reaction Status Date / Time No Known Allergies Allergy Verified 05/02/25 08:19 Review of Systems Constitutional: Constitutional: Reports as per HPI Physical Exam Vital Signs: Vital Signs: Last Vital Signs Temp 98.6 F 05/02/25 08:17 Pulse 95 05/02/25 08:17 Resp 16 05/02/25 08:17 BP 104/56 L 05/02/25 08:17 Pulse Ox 98 05/02/25 08:17 O2 Del Method Room Air 10/08/25 08:17 BMI result Body Mass Index 34.5 Const: Other: General: ?Appears of stated age ? Abd: ?Bowel sounds are present, no tenderness no rebound no rigidity ? ?MSK: FROM, strength 5/5 all extremities, no motor or sensory deficits bilateral lower extremities, she has paraspinal tenderness, no midline tenderne ss or step-offs ? Skin: Warm, dry, intact, ? ?Neuro: ?Alert and oriented x3, moving upper and lower extremities symmetrically, no obvious facial asymmetry noted, cranial nerves 2-12 intact Medical Decision Making Medical Decision Making MDM Narrative: 9:01 AM 05/02/2025 (Dr. Antonio Rice): Patient is overall well-appearing without any risk factors for the inflammatory infectious considerations as below, no neurologic deficits, did not feel further advanced imaging is indicated, please see my discharge instructions, this is not the type of presentation with a renal colic. Differential Diagnosis Differential Diagnoses: The differential diagnosis associated with the presentation includes (Diskitis, osteomyelitis, spinal epidural abscess, cauda equina, musculoskeletal pain) Admission/Observation Consideration of admission/observation: Escalation of care including admission/observation considered Independent Interpretation I performed an independent interpretation of an: Plain X-Ray (Loss of lumbar lordosis consistent with spasm, no fractures, disc spaces preserved) Tests considered The following testing was considered but not selected: CT lumbar spine CBC CMP Urinalysis Prescription Management I considered prescription management with: Pain Medication Discharge Plan Discharge Clinical Impression: Lumbar radiculopathy Patient Disposition: Home, Self-Care Additional Instructions: I recommend gentle stretching exercises, stretching your lower back and you hamstrings You were using lidocaine patches but look into getting [id number] capsaicin ointment patches, they come in the pack of 3 you can cut them in half and have 6 patches, I think they work very well and maybe better than lidocaine patches, in the meantime start steroids as prescribed, and diazepam is medication that I use for spasms, this can make you drowsy do not take while driving or work as it will make her very sleepy, you can take it at home while resting or before bedtime Your x-ray did show evidence for back spasm Worsening issues concerns come back to the ER Otherwise follow up with the PCP, you may need physical therapy, additional outpatient studies such as MRI, and I recommend looking into getting a TENS unit from pharmacy or on- line store Prescriptions: New diazepam [Valium] 2 mg tablet 2 mg PO TID PRN (Reason: spasms) 2 Days Qty: 6 0RF methylprednisolone [Medrol (Masoud)] 4 mg tablets,dose pack 4 mg PO DAILY Qty: 21 0RF Rx Instructions: Day 1: 24 mg on day 1 administered as 8 mg before breakfast, 4 mg after lunch, 4 mg after supper, and 8 mg at bedtime or 24 mg as a single dose or divided into 2 or 3 doses upon initiation. Day 2: 20 mg on day 2 administered as 4 mg before breakfast, 4 mg after lunch, 4 mg after supper, and 8 mg at bedtime. Day 3: 16 mg on day 3 administered as 4 mg before breakfast, 4 mg after lunch, 4 mg after supper, and 4 mg at bedtime. Day 4: 12 mg on day 4 administered as 4 mg before breakfast, 4 mg after lunch, and 4 mg at bedtime. Day 5: 8 mg on day 5 administered as 4 mg before breakfast and 4 mg at bedtime. Day 6: 4 mg on day 6 administered as 4 mg before breakfast. No Action doxycycline hyclate 100 mg capsule 100 mg PO BID 7 Days Qty: 14 0RF ibuprofen 600 mg tablet 600 mg PO Q6H PRN (Reason: pain) Qty: 20 0RF cephalexin 500 mg capsule 500 mg PO QID 7 Days Qty: 28 0RF doxycycline hyclate 100 mg tablet 100 mg PO BID 7 Days Qty: 14 0RF ibuprofen 600 mg tablet 600 mg PO Q6H PRN (Reason: pain) Qty: 30 0RF acetaminophen [Tylenol Extra Strength] 500 mg tablet 500 - 1,000 mg PO Q6H PRN (Reason: fever or pain) Qty: 30 0RF amoxicillin 500 mg tablet 500 mg PO BID 10 Days Qty: 20 0RF Print Language: Mosotho
[2025-05-02 09:28] VITALS: BP 104/56; PULSE 95; RESP 16; TEMP 37; O2SAT 98
== END 2025-05-02 09:30 | disposition home or self-care (01) ==
PROVIDERS: Emergency Provider Emergency Medicine
DX: M54.16 Radiculopathy, lumbar region (principal)
CPT/HCPCS: 72100; 96372; 99283; 99284; J1885

== ENCOUNTER → 2025-05-02 08:50 | Outpatient (BNV) | payer MEDICAID, SELFPAY | PROVIDERS: Emergency Provider Emergency Medicine; Visit Provider Radiology Diagnostic Radiology | DX: M54.50 Low back pain, unspecified (principal) | CPT/HCPCS: 72100 ==